=== PATIENT | male | born 1970 | race African-American/Black ===

== ENCOUNTER 2025-01-04 14:11 | Emergency (ER) | payer SELFPAY ==
[2025-01-04 14:18] VITALS: BP 110/76; PULSE 88; RESP 17; TEMP 36.9; O2SAT 97; BMI 25.0
[2025-01-04 15:00] LABS: Glucose Urine UA 3+ (Normal); Nitrate Urine Negative (Negative)
--- NOTE | 2025-01-04 15:04 | W.ED.MALEGU ---
HPI - Male Genitourinary General: Chief complaint: Urogenital-Male Stated complaint: testicle pain Time Seen by Provider: 01/04/25 14:34 History of Present Illness: Patient is 54-year-old gentleman without previous medical issues presents to the ED with scrotal pain, swelling, and discomfort. No dysuria. Content: Unprotected sexual partner approximately just over 5 weeks ago. Pain has been increasing over the last 30 days. Associated symptoms: Deny nausea, urinary incontinence or vomiting Related Data Home Medications ?Medication ?Instructions ?Recorded ?Confirmed No Known Home Medications 01/04/25 01/04/25 Allergies Allergy/AdvReac Type Severity Reaction Status Date / Time No Known Allergies Allergy Verified 01/04/25 14:22 Review of Systems General: Reports: 10 or more systems reviewed and unremarkable except in HPI and below Const: Denies: fever(s) or chills Eyes: Denies: change in vision or blurry vision ENMT: Denies: throat pain or dry mouth Card: Denies: chest pain or palpitations Resp: Denies: dyspnea or non-productive cough GI: Denies: abdominal pain, nausea or vomiting : Reports: testicular pain and scrotal swelling; Denies: flank pain, difficulty urinating, urinary urgency, change in urine stream, urinary incontinence or penile discharge Musc: Denies: neck pain, back pain, extremity pain or joint pain Skin/Breast: Denies: rash or pruritus Neuro: Denies: headache(s) or numbness in extremities Psych: Denies: anxiety or depression Physical Exam Const: COMMON NORMALS: no acute distress, average body habitus, patient oriented x3 and no limitations HENMT: COMMON NORMALS: normocephalic and atraumatic HEAD & SCALP: normocephalic and atraumatic Eye: COMMON NORMALS: Equal, round and reactive pupils present and EOMs intact bilaterally PUPIL: Yes Equal, round and reactive pupils present Neck/C-Spine: COMMON NORMALS: full ROM, no lymphadenopathy, supple and no meningeal signs Lymph: LYMPHATIC: no lymphadenopathy noted Chest: COMMONS NORMALS: normal inspection of the chest and normal palpation of entire chest wall Resp: COMMON NORMALS: normal respiratory effort, No retractions and No use of accessory muscles Cardio: COMMON NORMALS: regular rate and regular rhythm RATE: regular rate RHYTHM: regular rhythm : COMMON NORMALS: Yes no CVA tenderness BLADDER/KIDNEY EXAM: Yes no CVA tenderness PENIS: normal penis SCROTUM: Yes testes descended bilaterally and Yes Cremasteric reflex present TESTES: Yes Enlarged testicle(s) present (Mild left) and No testicular mass GENITAL IMAGES (MALE):  1. Mild localized swelling without variceal or spermatic cord prominence mild edema Back/Pelvis: COMMON NORMALS: no CVA tenderness and thoracic and lumbar spine normal to inspection Extremity: COMMON NORMALS: normal to inspection and full ROM Neuro: COMMON NORMALS: patient oriented x3 MENINGEAL SIGNS: Yes no meningeal signs Psych: COMMON NORMALS: mental status grossly normal and Normal thought process present THOUGHT PROCESS: Normal thought process present Course Reevaluation(s): Reevaluation #1: No change, updated patient Vital Signs: Vital signs: Vital Signs Temperature 98.4 F 01/04/25 14:18 Pulse Rate 78 01/04/25 18:27 Respiratory Rate 17 01/04/25 14:18 Blood Pressure 112/71 01/04/25 18:27 Pulse Oximetry 100 01/04/25 18:27 Oxygen Delivery Me thod Room Air 01/04/25 14:18 MDM - Male Medical Decision Making Patient is 54-year-old gentleman with new sexual partner just over 5 weeks ago, and pain, swelling to left testicle, discomfort over the last 3 days. Initial STI testing is negative. On exam, he did have some mild edema to his left testes. Ultrasound ordered showed multiple calcifications bilaterally. RPR is pending. All of this explained to patient. Wet prep, GC/C, urinalysis all negative. Ultrasound had multiple calcifications, however there is hydroceles present, left greater than right. Advised patient of [facility] support is best treatment. If hydroceles are worse, or pain is an issue, to follow-up with urology to consider surgical intervention. Medical Records I reviewed the patient's medical records. Lab Data I reviewed the patient's lab results. Radiology Impressions Scrotum Ultrasound 01/04/25 16:37 IMPRESSION: There are bilateral hydroceles, left greater than right.There is a questionable right-sided varicocele. Laboratory Results Urine Color Yellow (Yellow) 01/04/25 14:49 Urine Appearance Clear (CLEAR) 01/04/25 14:49 Urine pH 5.5 (5-7) 01/04/25 14:49 Ur Specific [place] 1.041 (1.005-1.030) H 01/04/25 14:49 Urine Protein Negative (Negative) 01/04/25 14:49 Urine Glucose (UA) 3+ (Normal) H 01/04/25 14:49 Urine Ketones Negative (Negative) 01/04/25 14:49 Urine Blood Negative (Negative) 01/04/25 14:49 Urine Nitrate Negative (Negative) 01/04/25 14:49 Urine Bilirubin Negative (Negative) 01/04/25 14:49 Urine Urobilinogen 1.0 mg/dL (Negative) 01/04/25 14:49 Ur Leukocyte Esterase Negative (Negative) 01/04/25 14:49 Urine RBC 0-2 /hpf (0-2) 01/04/25 14:49 Urine WBC 0-5 /hpf (0-5) 01/04/25 14:49 Ur Squamous Epith Cells 0-5 /hpf (0-5) 01/04/25 14:49 Amorphous Sediment Not Reportable 01/04/25 14:49 Urine Bacteria None seen /hpf (NONE) 01/04/25 14:49 Hyaline Casts 0.40 /lpf 01/04/25 14:49 C. trachomatis (PCR) Not detected (Negative) 01/04/25 14:49 Hepatitis A IgM Ab Non-reactive (Nonreactive) 01/04/25 15:17 Hep Bs Antigen Non-reactive (Nonreactive) 01/04/25 15:17 Hep B Core IgM Ab Non-reactive (Nonreactive) 01/04/25 15:17 Hepatitis C Antibody Non-reactive (Nonreactive) 01/04/25 15:17 HIV 1&2 Ab & HIV 1 Ag Non-reactive (Non-Reactiv) 01/04/25 15:17 HIV 1&2 Antibody Non-reactive (Non-Reactiv) 01/04/25 15:17 N. gonorrhoeae (PCR) Not detected (Negative) 01/04/25 14:49 XR interpretation done by ED provider, pending radiology final review ED provider radiology interpretation(s): Mild edema to left testes, bilateral calcifications Discharge Plan Discharge Patient Disposition: Home Clinical Impression: Bilateral hydrocele Condition: Stable Prescriptions: No Action No Known Home Medications Discharge Orders: Discharge ED (Routine); Ordered 01/04/25 Ordered By: Amrita Cantrell Patient Instructions: Hydrocele, Testicle Pain (ED), Patient Portal & Russ Instructions Activity Restrictions/Additional Instructions: - Obtain a jockstrap for support underwear. -If you have worsening pain, discussed with your primary if you need to be referred to a urologist. Typically they do not remove these until they are causing multiple issues, and swelling has increased, however given your difficulty with tolerating, you might want to further discuss with your primary regarding urology follow-up where you live. Thank you for choosing [facility] for your healthcare needs today. You have been screened and evaluated and felt safe for discharge. Health conditions do change or evolve sometimes and as such it is important that you follow up with your Primary Doctor to be re checked, 3-5 days is a general good time frame for follow up. You are always welcome to return to the ED for re assessment if your symptoms are worsening or you have new concerns Print Language: Swazi Coding Level of Care Code ED Outreach Rep for Elías Araujo
[2025-01-04 15:05] LABS: Add Urine Microscopic? YES
[2025-01-04 15:11] LABS: Specific Gravity, Urine 1.041 (1.005-1.030)
[2025-01-04 15:56] LABS: Hepatitis A Antibody IgM Non-Reactive (Nonreactive); Hepatitis B Surface Antigen Non-Reactive (Nonreactive)
[2025-01-04 15:57] LABS: HIV 1 & 2 Antigen Non-Reactive (Non-Reactiv)
[2025-01-04 16:29] LABS: Neisseria Gonorrhea NOT DETECTED (Negative)
--- NOTE | 2025-01-04 16:37 | USR_ITS ---
PROCEDURE INFORMATION: Exam: US Scrotum Exam date and time: 01/04/2025 5:04 PM Age: 54 years old Clinical indication: Swelling, testicles or scrotum; Additional info: Swollen left testes TECHNIQUE: Imaging protocol: Real-time ultrasound of the scrotum and contents with color Doppler and image documentation. COMPARISON: No relevant prior studies available. FINDINGS: Right testicle: measures 3.4 x 2.9 x 2.2 cm. There are echogenic calcifications. No mass. Normal color Doppler and arterial waveforms. No torsion. Left testicle: Measures 3.8 x 2.3 x 2.2 cm. There are echogenic calcifications. No mass. Normal color Doppler and arterial waveforms. No torsion. Epididymides: Normal. Scrotum/soft tissues: There are bilateral hydroceles, left greater than right. There is a questionable right-sided varicocele. US/US scrotum [id number] IMPRESSION: There are bilateral hydroceles, left greater than right.There is a questionable right-sided varicocele.
[2025-01-04 17:52] VITALS: BP 124/80; PULSE 71; O2SAT 100
[2025-01-04 18:27] VITALS: BP 112/71; PULSE 78; O2SAT 100
[2025-01-06 15:34] LABS: RPR w(Moniotor) w/REFL Titer NON-REACTIVE (NON-REACTIVE)
[2025-01-08 23:21] LABS: HSV 1 DNA Not Detected (Not Detected); HSV 2 DNA Not Detected (Not Detected)
== END 2025-01-04 18:29 | disposition home or self-care (01) ==
PROVIDERS: Emergency Provider Physician Assistant
DX: N43.3 Hydrocele, unspecified (principal)
CPT/HCPCS: 36415; 76870; 80074; 81001; 86592; 87210; 87491; 87530; 87591; 87806; 99284